=== PATIENT | female | born 1955 | race Caucasian/White ===

== ENCOUNTER 2018-08-07 13:45 | Outpatient (RCR) | payer OTHER, SELFPAY ==
--- NOTE | 2018-07-10 15:00 | PT.OIE ---
Current Diagnoses Sprain of unspecified parts of thorax, initial encounter (07/10/18) Provider Visit Care Team Role Provider Type Syed Tyson MD Attending Provider Non-Staff Primary Care Provider Specialty: Medical Address: [address] [place] [address], [id number] Email: Physical Therapy Initial Evaluation PT-OP-A Visit Information Start: 07/11/18 08:46 Freq: Status: Active Protocol: Document 07/10/18 13:00 AMB (Rec: 07/11/18 08:57 AMB [email or web address]) Out-Patient Physical Therapy Visit Information Visit Information Visit Type Initial Evaluation Visit Start Time 13:00 Visit Stop Time 13:45 Total Visit Minutes 45 Visit Number 1 Evaluation Information Evaluation Date 07/10/18 PT-OP-B Current Condition Start: 07/11/18 08:46 Freq: Status: Active Protocol: Document 07/10/18 13:00 AMB (Rec: 07/12/18 07:29 AMB [email or web address]) Current Condition History of Current Condition Onset Date February 2018 Current Complaints Right back pain that radiates into the groin History of Current Condition The patient was traveling with her in [place] and needed to get out of bed in the middle of the night in an odd bed. She strained her back doing this and the pain has been worsening since. Initially it was just unilateral lumbothoracic back pain but now it is radiating into the groin. Pain is worse with standing and walking. Prior Treatments and Tests Chiropractic, massage therapy, acupuncture, heat helps a bit but not for long Treatment Goals Patient/Caregiver Goals Walk without pain (pt traveling to [place] in August) Prior Functional Status Baseline Function- ADL's Independent Baseline Function- Mobility Independent Current Functional Impairments (Reported) Functional Limitations- Mobility/Gait Limited gait distance, standing tolerance, no falls in last 6 months Personal Factors Other Personal Factors That May Effect History of: B TKA surgery, L Therapy/Recovery foot fracture, L4-5 fusion in 1997 with continued L>R leg burning. PT-OP-C Subjective Start: 07/11/18 08:46 Freq: Status: Active Protocol: Document 07/10/18 13:00 AMB (Rec: 07/12/18 07:29 AMB [email or web address]) Patient Questionnaires Oswestry Low Back Index Oswestry Score 64 Oswestry Impairment 60 to 79% Impaired (Score 60- 79) OP-PT Pain Assessment Pain Assessment Grid Paper Pain Assessment Grid Completed Yes Location Right Back Pain Location Details R back/groin Intensity 7 Scale Used Numeric (1 - 10) PT-OP-F Manual Assessment Start: 07/11/18 08:46 Freq: Status: Active Protocol: Document 07/10/18 13:00 AMB (Rec: 07/12/18 10:19 AMB [email or web address]) Manual Assessments Joint Mobility Assessment Joint Mobility Assessment Pain with passive hip flexion on the right, range limited more by soft tissue than joint restriction, good rotation still. PT-OP-G Mobility & Gait Start: 07/11/18 08:46 Freq: Status: Active Protocol: Document 07/10/18 13:00 AMB (Rec: 07/12/18 10:19 AMB [email or web address]) OP Gait Assessment Comments Gait Comments No trunk rotation, excessive lateral lean with WBOS PT-OP-J Posture/Palpation/Skin Start: 07/11/18 08:46 Freq: Status: Active Protocol: Document 07/10/18 13:00 AMB (Rec: 07/12/18 10:19 AMB [email or web address]) Posture Evaluation Comments Posture Comments Increased lumbar lordosis Palpation Assessment Location One Palpation Location R back/groin Palpation Findings Soft Tissue Tightness Muscle Guarding Tenderness Palpation Details Tenderness and tightness at R QL and hip flexor with light palpation PT-OP-K Range of Motion Start: 07/11/18 08:46 Freq: Status: Active Protocol: Document 07/10/18 13:00 AMB (Rec: 07/12/18 10:19 AMB [email or web address]) Lumbar Spine Range of Motion Lumbar Spine Active Degrees Testing Position Standing Flexion 50 Extension 20 Lateral Flexion Left 17 Lateral Flexion Right 25 ROM Limitations Pain PT-OP-L Special Tests Start: 07/11/18 08:46 Freq: Status: Active Protocol: Document 07/10/18 13:00 AMB (Rec: 07/12/18 10:19 AMB [email or web address]) Special Tests Lumbar Spine Special Tests Straight Leg Raise Test Results negative PT-OP-M Strength Start: 07/11/18 08:46 Freq: Status: Active Protocol: Document 07/10/18 13:00 AMB (Rec: 07/12/18 10:19 AMB [email or web address]) Hip Strength Hip Manual Muscle Testing Right Flexion (L2) 4- Good- Extension (S1) 4 Good Abduction 4 Good Adduction 4 Good Left Flexion (L2) 4+ Good+ Extension (S1) 4+ Good+ Abduction 4 Good Adduction 4 Good Knee Strength Knee Manual Muscle Testing Left Flexion (S2) 5 Normal Extension (L3) 5 Normal Right Flexion (S2) 5 Normal Extension (L3) 5 Normal Ankle/Foot Strength Ankle and Foot Manual Muscle Testing Right Dorsiflexion (L4) 5 Normal Left Dorsiflexion (L4) 5 Normal PT-OP-Q Treatments Start: 07/11/18 08:46 Freq: Status: Active Protocol: Document 07/10/18 13:00 AMB (Rec: 07/12/18 10:04 AMB [email or web address]) Therapeutic Exercises Supine Exercises 1 Supine Exercise Name hip flexor stretch Reps/Minutes 30x2 Sidelying Exercises 1 Sidelying Exercise Name clamshell Reps/Minutes x10 PT-OP-T Assessment and Plan Start: 07/11/18 08:46 Freq: Status: Active Protocol: Document 07/10/18 13:00 AMB (Rec: 07/12/18 10:29 AMB [email or web address]) Physical Therapy Assessment Rehab Potential Rehabilitation Potential Good Evaluation Complexity Number of Personal Factors/Comorbidities 1-2 Number of Body Systems Impaired 4 or More Clinical Presentation at Evaluation Evolving Impairments Impairments Gait Pain Posture ROM Soft Tissue Mobility Strength Goals Two Impairment Pain Short Term Goal (STG) The patient will ndt inspector her kitchen to cook a meal for 20 minutes with pain of 3/10 or less. STG Duration 4 weeks Group Home Goal (LTG) The patient will move from sit to stand wiht 2/10 pain or less. LTG Duration 8 weeks One Impairment Gait Short Term Goal (STG) The patient will ambulate without ataxic gait for 10 minutes. STG Duration 4 weeks Oncology Rep Goal (LTG) The patient will ambulate for 15 minutes with pain of 3/10 or less. LTG Duration 8 weeks Assessment Summary Assessment The patient presents with a likely quadratus lumborum strain that has progressively worsened, so she is compensating and increasing pain in her hip flexor and groin. She presents with significant gait and postural deviations that are exacerbating her pain. Currently her pain appears more muscular than nerve irritation, although she does have baseline nerve symptoms from her back surgery in the s. The patient will benefit from improved flexibility in her spinal musculature as well as improved core and hip strength to avoid flaring her pain more with her poor postural and gait mechanics. Unfortunately chiropractic and massage therapy has not been beneficial so far. Physical Therapy Plan Frequency and Duration Frequency of Treatment 2x/Week Duration of Treatment 8 weeks Plan of Care Start Date 07/10/18 Plan of Care End Date 09/04/18 Therapeutic Interventions Therapeutic Interventions Aquatic Therapy Balance Training Gait Training Home Exercise Program Joint Mobilizations Manual Therapy Neuromuscular Re-education Self-Care/Home Management Soft Tissue Mobilization Therapeutic Activities Therapeutic Exercises Modalities Electric Stimulation Hot Packs Ultrasound Next Visit Focus/Plan Next Note Type Treatment Note Next Visit Plan Work on posture and gait, hip and core stabilization
--- NOTE | 2018-07-10 15:00 | PT.OPPOC ---
Current Diagnoses Sprain of unspecified parts of thorax, initial encounter (07/10/18) Provider Visit Care Team Role Provider Type Syed Tyson MD Attending Provider Non-Staff Primary Care Provider Specialty: Medical Address: [address] [place] [address], [phone] Email: Plan Of Care PT-OP-T Assessment and Plan Start: 07/11/18 08:46 Freq: Status: Active Protocol: Document 07/10/18 13:00 AMB (Rec: 07/12/18 10:29 AMB [email or web address]) Physical Therapy Assessment Rehab Potential Rehabilitation Potential Good Evaluation Complexity Number of Personal Factors/Comorbidities 1-2 Number of Body Systems Impaired 4 or More Clinical Presentation at Evaluation Evolving Impairments Impairments Gait Pain Posture ROM Soft Tissue Mobility Strength Goals Two Impairment Pain Short Term Goal (STG) The patient will action finisher her kitchen to cook a meal for 20 minutes with pain of 3/10 or less. STG Duration 4 weeks Fpc Goal (LTG) The patient will move from sit to stand wiht 2/10 pain or less. LTG Duration 8 weeks One Impairment Gait Short Term Goal (STG) The patient will ambulate without ataxic gait for 10 minutes. STG Duration 4 weeks Business Affairs Manager Goal (LTG) The patient will ambulate for 15 minutes with pain of 3/10 or less. LTG Duration 8 weeks Assessment Summary Assessment The patient presents with a likely quadratus lumborum strain that has progressively worsened, so she is compensating and increasing pain in her hip flexor and groin. She presents with significant gait and postural deviations that are exacerbating her pain. Currently her pain appears more muscular than nerve irritation, although she does have baseline nerve symptoms from her back surgery in the s. The patient will benefit from improved flexibility in her spinal musculature as well as improved core and hip strength to avoid flaring her pain more with her poor postural and gait mechanics. Unfortunately chiropractic and massage therapy has not been beneficial so far. Physical Therapy Plan Frequency and Duration Frequency of Treatment 2x/Week Duration of Treatment 8 weeks Plan of Care Start Date 07/10/18 Plan of Care End Date 09/04/18 Therapeutic Interventions Therapeutic Interventions Aquatic Therapy Balance Training Gait Training Home Exercise Program Joint Mobilizations Manual Therapy Neuromuscular Re-education Self-Care/Home Management Soft Tissue Mobilization Therapeutic Activities Therapeutic Exercises Modalities Electric Stimulation Hot Packs Ultrasound Next Visit Focus/Plan Next Note Type Treatment Note Next Visit Plan Work on posture and gait, hip and core stabilization Plan of Care Dates Plan of Care Start Date 07/10/18 Plan of Care End Date 09/04/18 Please Sign and Return: I have reviewed this Plan of Care and certify that the skilled therapy services above are required to meet the patient?s needs. Physician Signature Date Printed Name and Credentials Clinical Instructor Signature Printed Name and Credentials
--- NOTE | 2018-07-13 16:17 | PT.OTN ---
Current Diagnoses Sprain of unspecified parts of thorax, initial encounter (07/13/18) Physical Therapy Treatment Note PT-OP-A Visit Information Start: 07/11/18 08:46 Freq: Status: Active Protocol: Document 07/13/18 13:00 AMB (Rec: 07/13/18 13:08 AMB [email or web address]) Out-Patient Physical Therapy Visit Information Visit Information Visit Type Treatment Note Visit Start Time 13:00 Visit Stop Time 13:45 Total Visit Minutes 45 Visit Number 1 PT-OP-B Current Condition Start: 07/11/18 08:46 Freq: Status: Active Protocol: Document 07/10/18 13:00 AMB (Rec: 07/12/18 07:29 AMB [email or web address]) Current Condition History of Current Condition Onset Date February 2018 Current Complaints Right back pain that radiates into the groin History of Current Condition The patient was traveling with her in [place] and needed to get out of bed in the middle of the night in an odd bed. She strained her back doing this and the pain has been worsening since. Initially it was just unilateral lumbothoracic back pain but now it is radiating into the groin. Pain is worse with standing and walking. Prior Treatments and Tests Chiropractic, massage therapy, acupuncture, heat helps a bit but not for long Treatment Goals Patient/Caregiver Goals Walk without pain (pt traveling to [place] in August) Prior Functional Status Baseline Function- ADL's Independent Baseline Function- Mobility Independent Current Functional Impairments (Reported) Functional Limitations- Mobility/Gait Limited gait distance, standing tolerance, no falls in last 6 months Personal Factors Other Personal Factors That May Effect History of: B TKA surgery, L Therapy/Recovery foot fracture, L4-5 fusion in 1997 with continued L>R leg burning. PT-OP-C Subjective Start: 07/11/18 08:46 Freq: Status: Active Protocol: Document 07/13/18 13:00 AMB (Rec: 07/13/18 13:08 AMB [email or web address]) OP-PT Subjective Patient Comments Patient Comments Pt is using a cane now which is helping her walk better. PT-OP-F Manual Assessment Start: 07/11/18 08:46 Freq: Status: Active Protocol: Document 07/10/18 13:00 AMB (Rec: 07/12/18 10:19 AMB [email or web address]) Manual Assessments Joint Mobility Assessment Joint Mobility Assessment Pain with passive hip flexion on the right, range limited more by soft tissue than joint restriction, good rotation still. PT-OP-G Mobility & Gait Start: 07/11/18 08:46 Freq: Status: Active Protocol: Document 07/10/18 13:00 AMB (Rec: 07/12/18 10:19 AMB [email or web address]) OP Gait Assessment Comments Gait Comments No trunk rotation, excessive lateral lean with WBOS PT-OP-J Posture/Palpation/Skin Start: 07/11/18 08:46 Freq: Status: Active Protocol: Document 07/10/18 13:00 AMB (Rec: 07/12/18 10:19 AMB [email or web address]) Posture Evaluation Comments Posture Comments Increased lumbar lordosis Palpation Assessment Location One Palpation Location R back/groin Palpation Findings Soft Tissue Tightness Muscle Guarding Tenderness Palpation Details Tenderness and tightness at R QL and hip flexor with light palpation PT-OP-K Range of Motion Start: 07/11/18 08:46 Freq: Status: Active Protocol: Document 07/10/18 13:00 AMB (Rec: 07/12/18 10:19 AMB [email or web address]) Lumbar Spine Range of Motion Lumbar Spine Active Degrees Testing Position Standing Flexion 50 Extension 20 Lateral Flexion Left 17 Lateral Flexion Right 25 ROM Limitations Pain PT-OP-L Special Tests Start: 07/11/18 08:46 Freq: Status: Active Protocol: Document 07/10/18 13:00 AMB (Rec: 07/12/18 10:19 AMB [email or web address]) Special Tests Lumbar Spine Special Tests Straight Leg Raise Test Results negative PT-OP-M Strength Start: 07/11/18 08:46 Freq: Status: Active Protocol: Document 07/10/18 13:00 AMB (Rec: 07/12/18 10:19 AMB [email or web address]) Hip Strength Hip Manual Muscle Testing Right Flexion (L2) 4- Good- Extension (S1) 4 Good Abduction 4 Good Adduction 4 Good Left Flexion (L2) 4+ Good+ Extension (S1) 4+ Good+ Abduction 4 Good Adduction 4 Good Knee Strength Knee Manual Muscle Testing Left Flexion (S2) 5 Normal Extension (L3) 5 Normal Right Flexion (S2) 5 Normal Extension (L3) 5 Normal Ankle/Foot Strength Ankle and Foot Manual Muscle Testing Right Dorsiflexion (L4) 5 Normal Left Dorsiflexion (L4) 5 Normal PT-OP-Q Treatments Start: 07/11/18 08:46 Freq: Status: Active Protocol: Document 07/13/18 13:00 AMB (Rec: 07/13/18 13:46 AMB [email or web address]) Cardio Equipment Recumbent Stepper (Sci-Fit) Duration (Minutes) 5 Resistance 1.5 Therapeutic Exercises Supine Exercises 5 Supine Exercise Name bridge Reps/Minutes 2x10 4 Supine Exercise Name SLR Reps/Minutes 2x5 3 Supine Exercise Name hamstring stretch Reps/Minutes 30x2 2 Supine Exercise Name adductor stretch Reps/Minutes 30x2 1 Supine Exercise Name hip flexor stretch Reps/Minutes 30x2 Sidelying Exercises 2 Sidelying Exercise Name hip abduction Reps/Minutes 2x10 1 Sidelying Exercise Name clamshell Reps/Minutes x10 PT-OP-T Assessment and Plan Start: 07/11/18 08:46 Freq: Status: Active Protocol: Document 07/13/18 13:00 AMB (Rec: 07/13/18 16:15 AMB [email or web address]) Physical Therapy Assessment Assessment Summary Assessment Pt with good improvement of symptoms with initiating cane use. Will need to continue to strengthen to be able to d/c cane in the future. Physical Therapy Plan Next Visit Focus/Plan Next Note Type Treatment Note Next Visit Plan Work on posture and gait, hip and core stabilization
--- NOTE | 2018-07-18 07:36 | PT.OTN ---
Current Diagnoses Sprain of unspecified parts of thorax, initial encounter (07/17/18) Physical Therapy Treatment Note PT-OP-A Visit Information Start: 07/11/18 08:46 Freq: Status: Active Protocol: Document 07/17/18 13:45 AMB (Rec: 07/18/18 07:36 AMB [email or web address]) Out-Patient Physical Therapy Visit Information Visit Information Visit Type Treatment Note Visit Start Time 13:45 Visit Stop Time 14:30 Total Visit Minutes 45 Visit Number 3 Evaluation Information Evaluation Date 07/10/18 PT-OP-B Current Condition Start: 07/11/18 08:46 Freq: Status: Active Protocol: Document 07/10/18 13:00 AMB (Rec: 07/12/18 07:29 AMB [email or web address]) Current Condition History of Current Condition Onset Date February 2018 Current Complaints Right back pain that radiates into the groin History of Current Condition The patient was traveling with her in [place] and needed to get out of bed in the middle of the night in an odd bed. She strained her back doing this and the pain has been worsening since. Initially it was just unilateral lumbothoracic back pain but now it is radiating into the groin. Pain is worse with standing and walking. Prior Treatments and Tests Chiropractic, massage therapy, acupuncture, heat helps a bit but not for long Treatment Goals Patient/Caregiver Goals Walk without pain (pt traveling to [place] in August) Prior Functional Status Baseline Function- ADL's Independent Baseline Function- Mobility Independent Current Functional Impairments (Reported) Functional Limitations- Mobility/Gait Limited gait distance, standing tolerance, no falls in last 6 months Personal Factors Other Personal Factors That May Effect History of: B TKA surgery, L Therapy/Recovery foot fracture, L4-5 fusion in 1997 with continued L>R leg burning. PT-OP-C Subjective Start: 07/11/18 08:46 Freq: Status: Active Protocol: Document 07/17/18 13:45 AMB (Rec: 07/18/18 07:36 AMB [email or web address]) OP-PT Subjective Patient Comments Patient Comments Pt states se was quite sore after PT Monday morning. The sorness is getting better but has continued. Generally more antaglic gait today. PT-OP-F Manual Assessment Start: 07/11/18 08:46 Freq: Status: Active Protocol: Document 07/10/18 13:00 AMB (Rec: 07/12/18 10:19 AMB [email or web address]) Manual Assessments Joint Mobility Assessment Joint Mobility Assessment Pain with passive hip flexion on the right, range limited more by soft tissue than joint restriction, good rotation still. PT-OP-G Mobility & Gait Start: 07/11/18 08:46 Freq: Status: Active Protocol: Document 07/10/18 13:00 AMB (Rec: 07/12/18 10:19 AMB [email or web address]) OP Gait Assessment Comments Gait Comments No trunk rotation, excessive lateral lean with WBOS PT-OP-J Posture/Palpation/Skin Start: 07/11/18 08:46 Freq: Status: Active Protocol: Document 07/10/18 13:00 AMB (Rec: 07/12/18 10:19 AMB [email or web address]) Posture Evaluation Comments Posture Comments Increased lumbar lordosis Palpation Assessment Location One Palpation Location R back/groin Palpation Findings Soft Tissue Tightness Muscle Guarding Tenderness Palpation Details Tenderness and tightness at R QL and hip flexor with light palpation PT-OP-K Range of Motion Start: 07/11/18 08:46 Freq: Status: Active Protocol: Document 07/10/18 13:00 AMB (Rec: 07/12/18 10:19 AMB [email or web address]) Lumbar Spine Range of Motion Lumbar Spine Active Degrees Testing Position Standing Flexion 50 Extension 20 Lateral Flexion Left 17 Lateral Flexion Right 25 ROM Limitations Pain PT-OP-L Special Tests Start: 07/11/18 08:46 Freq: Status: Active Protocol: Document 07/10/18 13:00 AMB (Rec: 07/12/18 10:19 AMB [email or web address]) Special Tests Lumbar Spine Special Tests Straight Leg Raise Test Results negative PT-OP-M Strength Start: 07/11/18 08:46 Freq: Status: Active Protocol: Document 07/10/18 13:00 AMB (Rec: 07/12/18 10:19 AMB [email or web address]) Hip Strength Hip Manual Muscle Testing Right Flexion (L2) 4- Good- Extension (S1) 4 Good Abduction 4 Good Adduction 4 Good Left Flexion (L2) 4+ Good+ Extension (S1) 4+ Good+ Abduction 4 Good Adduction 4 Good Knee Strength Knee Manual Muscle Testing Left Flexion (S2) 5 Normal Extension (L3) 5 Normal Right Flexion (S2) 5 Normal Extension (L3) 5 Normal Ankle/Foot Strength Ankle and Foot Manual Muscle Testing Right Dorsiflexion (L4) 5 Normal Left Dorsiflexion (L4) 5 Normal PT-OP-Q Treatments Start: 07/11/18 08:46 Freq: Status: Active Protocol: Document 07/17/18 13:45 AMB (Rec: 07/18/18 07:36 AMB [email or web address]) Cardio Equipment Recumbent Stepper (Sci-Fit) Duration (Minutes) 5 Resistance 1.5 Therapeutic Exercises Supine Exercises 2 Supine Exercise Name adductor stretch Reps/Minutes 30x2 1 Supine Exercise Name hip flexor stretch Reps/Minutes 30x2 Sidelying Exercises 1 Sidelying Exercise Name clamshell Reps/Minutes x10 Manual Therapy Treatment Soft Tissue Mobilization 1 Body Location R QL Mobilization Type Myofascial Release Trigger Point Release Intensity/Depth Moderate Body Position Sidelying Manual Traction Lumbar Details Long axis distraction Body Position Supine PT-OP-T Assessment and Plan Start: 07/11/18 08:46 Freq: Status: Active Protocol: Document 07/17/18 13:45 AMB (Rec: 07/18/18 07:36 AMB [email or web address]) Physical Therapy Assessment Assessment Summary Assessment Pt noticed improved hip sx after manualtherapy, but continued to have back pain. Pt instructed in theracane usage. Physical Therapy Plan Next Visit Focus/Plan Next Note Type Treatment Note Next Visit Plan Work on posture and gait, hip and core stabilization to patient tolerance.
--- NOTE | 2018-07-20 13:03 | PT.OTN ---
Current Diagnoses Sprain of unspecified parts of thorax, initial encounter (07/20/18) Physical Therapy Treatment Note PT-OP-A Visit Information Start: 07/11/18 08:46 Freq: Status: Active Protocol: Document 07/20/18 12:57 SA (Rec: 07/20/18 13:03 SA [email or web address]) Out-Patient Physical Therapy Visit Information Visit Information Visit Type Treatment Note Visit Start Time 12:13 Visit Stop Time 12:57 Total Visit Minutes 44 Visit Number 4 Number of SCRAP BALER Visits 1 PT-OP-B Current Condition Start: 07/11/18 08:46 Freq: Status: Active Protocol: Document 07/10/18 13:00 AMB (Rec: 07/12/18 07:29 AMB [email or web address]) Current Condition History of Current Condition Onset Date February 2018 Current Complaints Right back pain that radiates into the groin History of Current Condition The patient was traveling with her in [place] and needed to get out of bed in the middle of the night in an odd bed. She strained her back doing this and the pain has been worsening since. Initially it was just unilateral lumbothoracic back pain but now it is radiating into the groin. Pain is worse with standing and walking. Prior Treatments and Tests Chiropractic, massage therapy, acupuncture, heat helps a bit but not for long Treatment Goals Patient/Caregiver Goals Walk without pain (pt traveling to [place] in August) Prior Functional Status Baseline Function- ADL's Independent Baseline Function- Mobility Independent Current Functional Impairments (Reported) Functional Limitations- Mobility/Gait Limited gait distance, standing tolerance, no falls in last 6 months Personal Factors Other Personal Factors That May Effect History of: B TKA surgery, L Therapy/Recovery foot fracture, L4-5 fusion in 1997 with continued L>R leg burning. PT-OP-C Subjective Start: 07/11/18 08:46 Freq: Status: Active Protocol: Document 07/20/18 12:57 SA (Rec: 07/20/18 13:03 SA [email or web address]) OP-PT Subjective Patient Comments Patient Comments Pt states she is slowly feeling less groin and R lower back pain. Doing stretches 2x daily at home. PT-OP-F Manual Assessment Start: 07/11/18 08:46 Freq: Status: Active Protocol: Document 07/10/18 13:00 AMB (Rec: 07/12/18 10:19 AMB [email or web address]) Manual Assessments Joint Mobility Assessment Joint Mobility Assessment Pain with passive hip flexion on the right, range limited more by soft tissue than joint restriction, good rotation still. PT-OP-G Mobility & Gait Start: 07/11/18 08:46 Freq: Status: Active Protocol: Document 07/10/18 13:00 AMB (Rec: 07/12/18 10:19 AMB [email or web address]) OP Gait Assessment Comments Gait Comments No trunk rotation, excessive lateral lean with WBOS PT-OP-J Posture/Palpation/Skin Start: 07/11/18 08:46 Freq: Status: Active Protocol: Document 07/10/18 13:00 AMB (Rec: 07/12/18 10:19 AMB [email or web address]) Posture Evaluation Comments Posture Comments Increased lumbar lordosis Palpation Assessment Location One Palpation Location R back/groin Palpation Findings Soft Tissue Tightness Muscle Guarding Tenderness Palpation Details Tenderness and tightness at R QL and hip flexor with light palpation PT-OP-K Range of Motion Start: 07/11/18 08:46 Freq: Status: Active Protocol: Document 07/10/18 13:00 AMB (Rec: 07/12/18 10:19 AMB [email or web address]) Lumbar Spine Range of Motion Lumbar Spine Active Degrees Testing Position Standing Flexion 50 Extension 20 Lateral Flexion Left 17 Lateral Flexion Right 25 ROM Limitations Pain PT-OP-L Special Tests Start: 07/11/18 08:46 Freq: Status: Active Protocol: Document 07/10/18 13:00 AMB (Rec: 07/12/18 10:19 AMB [email or web address]) Special Tests Lumbar Spine Special Tests Straight Leg Raise Test Results negative PT-OP-M Strength Start: 07/11/18 08:46 Freq: Status: Active Protocol: Document 07/10/18 13:00 AMB (Rec: 07/12/18 10:19 AMB [email or web address]) Hip Strength Hip Manual Muscle Testing Right Flexion (L2) 4- Good- Extension (S1) 4 Good Abduction 4 Good Adduction 4 Good Left Flexion (L2) 4+ Good+ Extension (S1) 4+ Good+ Abduction 4 Good Adduction 4 Good Knee Strength Knee Manual Muscle Testing Left Flexion (S2) 5 Normal Extension (L3) 5 Normal Right Flexion (S2) 5 Normal Extension (L3) 5 Normal Ankle/Foot Strength Ankle and Foot Manual Muscle Testing Right Dorsiflexion (L4) 5 Normal Left Dorsiflexion (L4) 5 Normal PT-OP-Q Treatments Start: 07/11/18 08:46 Freq: Status: Active Protocol: Document 07/20/18 12:57 SA (Rec: 07/20/18 13:03 SA [email or web address]) Cardio Equipment Recumbent Stepper (Sci-Fit) Duration (Minutes) 6 Resistance 1.6 Therapeutic Exercises Supine Exercises 4 Supine Exercise Name SLR Reps/Minutes 2x5 3 Supine Exercise Name hamstring stretch Reps/Minutes 30x2 2 Supine Exercise Name adductor stretch Reps/Minutes 30x2 1 Supine Exercise Name hip flexor stretch Reps/Minutes 30x2 Sidelying Exercises 1 Sidelying Exercise Name clamshell Reps/Minutes 15 PT-OP-T Assessment and Plan Start: 07/11/18 08:46 Freq: Status: Active Protocol: Document 07/20/18 12:57 SA (Rec: 07/20/18 13:03 [email or web address]) Physical Therapy Assessment Assessment Summary Assessment Pt demonstrates good ability to perform stretches/exercises . Decreasing groin pain but continued antalgic gait. Physical Therapy Plan Next Visit Focus/Plan Next Note Type Treatment Note Next Visit Plan Continue to work on posture, gait and core stabilization. Pt responded well to manual therapy last visit.
--- NOTE | 2018-07-25 15:45 | PT.OTN ---
Current Diagnoses Sprain of unspecified parts of thorax, initial encounter (07/25/18) Physical Therapy Treatment Note PT-OP-A Visit Information Start: 07/11/18 08:46 Freq: Status: Active Protocol: Document 07/25/18 14:30 AMB (Rec: 07/25/18 14:38 AMB [id number]) Out-Patient Physical Therapy Visit Information Visit Information Visit Type Treatment Note Visit Start Time 14:30 Visit Stop Time 15:15 Total Visit Minutes 44 Visit Number 5 Number of PHYSICS TECHNICAL OFFICER Visits 0 PT-OP-B Current Condition Start: 07/11/18 08:46 Freq: Status: Active Protocol: Document 07/10/18 13:00 AMB (Rec: 07/12/18 07:29 AMB [email or web address]) Current Condition History of Current Condition Onset Date February 2018 Current Complaints Right back pain that radiates into the groin History of Current Condition The patient was traveling with her in [place] and needed to get out of bed in the middle of the night in an odd bed. She strained her back doing this and the pain has been worsening since. Initially it was just unilateral lumbothoracic back pain but now it is radiating into the groin. Pain is worse with standing and walking. Prior Treatments and Tests Chiropractic, massage therapy, acupuncture, heat helps a bit but not for long Treatment Goals Patient/Caregiver Goals Walk without pain (pt traveling to [place] in August) Prior Functional Status Baseline Function- ADL's Independent Baseline Function- Mobility Independent Current Functional Impairments (Reported) Functional Limitations- Mobility/Gait Limited gait distance, standing tolerance, no falls in last 6 months Personal Factors Other Personal Factors That May Effect History of: B TKA surgery, L Therapy/Recovery foot fracture, L4-5 fusion in 1997 with continued L>R leg burning. PT-OP-C Subjective Start: 07/11/18 08:46 Freq: Status: Active Protocol: Document 07/25/18 14:30 AMB (Rec: 07/25/18 14:38 AMB [id number]) OP-PT Subjective Patient Comments Patient Comments Pt is feeling less groin pain and R low back pain, but her R lateral hip pain is worse. PT-OP-F Manual Assessment Start: 07/11/18 08:46 Freq: Status: Active Protocol: Document 07/10/18 13:00 AMB (Rec: 12/13/18 10:19 AMB [email or web address]) Manual Assessments Joint Mobility Assessment Joint Mobility Assessment Pain with passive hip flexion on the right, range limited more by soft tissue than joint restriction, good rotation still. PT-OP-G Mobility & Gait Start: 07/11/18 08:46 Freq: Status: Active Protocol: Document 07/10/18 13:00 AMB (Rec: 07/12/18 10:19 AMB [email or web address]) OP Gait Assessment Comments Gait Comments No trunk rotation, excessive lateral lean with WBOS PT-OP-J Posture/Palpation/Skin Start: 07/11/18 08:46 Freq: Status: Active Protocol: Document 07/10/18 13:00 AMB (Rec: 07/12/18 10:19 AMB [email or web address]) Posture Evaluation Comments Posture Comments Increased lumbar lordosis Palpation Assessment Location One Palpation Location R back/groin Palpation Findings Soft Tissue Tightness Muscle Guarding Tenderness Palpation Details Tenderness and tightness at R QL and hip flexor with light palpation PT-OP-K Range of Motion Start: 07/11/18 08:46 Freq: Status: Active Protocol: Document 07/10/18 13:00 AMB (Rec: 07/12/18 10:19 AMB [email or web address]) Lumbar Spine Range of Motion Lumbar Spine Active Degrees Testing Position Standing Flexion 50 Extension 20 Lateral Flexion Left 17 Lateral Flexion Right 25 ROM Limitations Pain PT-OP-L Special Tests Start: 07/11/18 08:46 Freq: Status: Active Protocol: Document 07/10/18 13:00 AMB (Rec: 07/12/18 10:19 AMB [email or web address]) Special Tests Lumbar Spine Special Tests Straight Leg Raise Test Results negative PT-OP-M Strength Start: 07/11/18 08:46 Freq: Status: Active Protocol: Document 07/10/18 13:00 AMB (Rec: 07/12/18 10:19 AMB [email or web address]) Hip Strength Hip Manual Muscle Testing Right Flexion (L2) 4- Good- Extension (S1) 4 Good Abduction 4 Good Adduction 4 Good Left Flexion (L2) 4+ Good+ Extension (S1) 4+ Good+ Abduction 4 Good Adduction 4 Good Knee Strength Knee Manual Muscle Testing Left Flexion (S2) 5 Normal Extension (L3) 5 Normal Right Flexion (S2) 5 Normal Extension (L3) 5 Normal Ankle/Foot Strength Ankle and Foot Manual Muscle Testing Right Dorsiflexion (L4) 5 Normal Left Dorsiflexion (L4) 5 Normal PT-OP-Q Treatments Start: 07/11/18 08:46 Freq: Status: Active Protocol: Document 07/25/18 14:30 AMB (Rec: 07/25/18 14:39 AMB [id number]) Cardio Equipment Recumbent Stepper (Sci-Fit) Duration (Minutes) 6 Resistance 1.0 Therapeutic Exercises Supine Exercises 4 Supine Exercise Name SLR Reps/Minutes 2x5 3 Supine Exercise Name hamstring stretch Reps/Minutes 30x2 2 Supine Exercise Name adductor stretch Reps/Minutes 30x2 1 Supine Exercise Name hip flexor stretch Reps/Minutes 30x2 Sidelying Exercises 1 Sidelying Exercise Name clamshell Reps/Minutes 15 Manual Therapy Treatment Soft Tissue Mobilization 1 Body Location R QL/ IT band Mobilization Type Myofascial Release Trigger Point Release Intensity/Depth Moderate Body Position Sidelying PT-OP-T Assessment and Plan Start: 07/11/18 08:46 Freq: Status: Active Protocol: Document 07/25/18 14:30 AMB (Rec: 07/25/18 15:45 AMB [email or web address]) Physical Therapy Assessment Assessment Summary Assessment d/george hip abduction from HEP, can do clamshell, see if that helps decrease lateral hip pain. Physical Therapy Plan Next Visit Focus/Plan Next Note Type Treatment Note Next Visit Plan Recheck groin vs hip vs back pain
--- NOTE | 2018-07-27 16:08 | PT.OTN ---
Current Diagnoses Sprain of unspecified parts of thorax, initial encounter (07/27/18) Physical Therapy Treatment Note PT-OP-A Visit Information Start: 07/11/18 08:46 Freq: Status: Active Protocol: Document 07/27/18 14:30 AMB (Rec: 07/27/18 14:43 AMB [id number]) Out-Patient Physical Therapy Visit Information Visit Information Visit Type Treatment Note Visit Start Time 14:30 Visit Stop Time 15:15 Total Visit Minutes 45 Visit Number 6 Number of GRIT REMOVAL OPERATOR Visits 0 PT-OP-B Current Condition Start: 07/11/18 08:46 Freq: Status: Active Protocol: Document 07/10/18 13:00 AMB (Rec: 07/12/18 07:29 AMB [email or web address]) Current Condition History of Current Condition Onset Date February 2018 Current Complaints Right back pain that radiates into the groin History of Current Condition The patient was traveling with her in [place] and needed to get out of bed in the middle of the night in an odd bed. She strained her back doing this and the pain has been worsening since. Initially it was just unilateral lumbothoracic back pain but now it is radiating into the groin. Pain is worse with standing and walking. Prior Treatments and Tests Chiropractic, massage therapy, acupuncture, heat helps a bit but not for long Treatment Goals Patient/Caregiver Goals Walk without pain (pt traveling to [place] in August) Prior Functional Status Baseline Function- ADL's Independent Baseline Function- Mobility Independent Current Functional Impairments (Reported) Functional Limitations- Mobility/Gait Limited gait distance, standing tolerance, no falls in last 6 months Personal Factors Other Personal Factors That May Effect History of: B TKA surgery, L Therapy/Recovery foot fracture, L4-5 fusion in 1997 with continued L>R leg burning. PT-OP-C Subjective Start: 07/11/18 08:46 Freq: Status: Active Protocol: Document 07/27/18 14:30 AMB (Rec: 07/27/18 14:43 AMB [id number]) OP-PT Subjective Patient Comments Patient Comments Pt is feeling better today. PT-OP-F Manual Assessment Start: 07/11/18 08:46 Freq: Status: Active Protocol: Document 07/10/18 13:00 AMB (Rec: 07/12/18 10:19 AMB [email or web address]) Manual Assessments Joint Mobility Assessment Joint Mobility Assessment Pain with passive hip flexion on the right, range limited more by soft tissue than joint restriction, good rotation still. PT-OP-G Mobility & Gait Start: 07/11/18 08:46 Freq: Status: Active Protocol: Document 07/10/18 13:00 AMB (Rec: 07/12/18 10:19 AMB [email or web address]) OP Gait Assessment Comments Gait Comments No trunk rotation, excessive lateral lean with WBOS PT-OP-J Posture/Palpation/Skin Start: 07/11/18 08:46 Freq: Status: Active Protocol: Document 07/10/18 13:00 AMB (Rec: 07/12/18 10:19 AMB [email or web address]) Posture Evaluation Comments Posture Comments Increased lumbar lordosis Palpation Assessment Location One Palpation Location R back/groin Palpation Findings Soft Tissue Tightness Muscle Guarding Tenderness Palpation Details Tenderness and tightness at R QL and hip flexor with light palpation PT-OP-K Range of Motion Start: 07/11/18 08:46 Freq: Status: Active Protocol: Document 07/10/18 13:00 AMB (Rec: 07/12/18 10:19 AMB [email or web address]) Lumbar Spine Range of Motion Lumbar Spine Active Degrees Testing Position Standing Flexion 50 Extension 20 Lateral Flexion Left 17 Lateral Flexion Right 25 ROM Limitations Pain PT-OP-L Special Tests Start: 07/11/18 08:46 Freq: Status: Active Protocol: Document 07/10/18 13:00 AMB (Rec: 07/12/18 10:19 AMB [email or web address]) Special Tests Lumbar Spine Special Tests Straight Leg Raise Test Results negative PT-OP-M Strength Start: 07/11/18 08:46 Freq: Status: Active Protocol: Document 07/10/18 13:00 AMB (Rec: 07/12/18 10:19 AMB [email or web address]) Hip Strength Hip Manual Muscle Testing Right Flexion (L2) 4- Good- Extension (S1) 4 Good Abduction 4 Good Adduction 4 Good Left Flexion (L2) 4+ Good+ Extension (S1) 4+ Good+ Abduction 4 Good Adduction 4 Good Knee Strength Knee Manual Muscle Testing Left Flexion (S2) 5 Normal Extension (L3) 5 Normal Right Flexion (S2) 5 Normal Extension (L3) 5 Normal Ankle/Foot Strength Ankle and Foot Manual Muscle Testing Right Dorsiflexion (L4) 5 Normal Left Dorsiflexion (L4) 5 Normal PT-OP-Q Treatments Start: 07/11/18 08:46 Freq: Status: Active Protocol: Document 07/27/18 14:30 AMB (Rec: 07/27/18 16:08 AMB [email or web address]) Cardio Equipment Recumbent Stepper (Sci-Fit) Duration (Minutes) 6 Resistance 4 Manual Therapy Treatment Soft Tissue Mobilization 1 Body Location R QL/ IT band Mobilization Type Myofascial Release Trigger Point Release Intensity/Depth Moderate Body Position Sidelying PT-OP-T Assessment and Plan Start: 07/11/18 08:46 Freq: Status: Active Protocol: Document 07/27/18 14:30 AMB (Rec: 07/27/18 16:08 AMB [email or web address]) Physical Therapy Assessment Assessment Summary Assessment Pt tolerated manual well, but is still using the cane. Physical Therapy Plan Next Visit Focus/Plan Next Note Type Treatment Note Next Visit Plan Possible discharge if pt still doing well.
--- NOTE | 2018-08-02 08:03 | PT.OTN ---
Current Diagnoses Sprain of unspecified parts of thorax, initial encounter (07/30/18) Physical Therapy Treatment Note PT-OP-A Visit Information Start: 07/11/18 08:46 Freq: Status: Active Protocol: Document 07/30/18 14:30 AMB (Rec: 07/30/18 14:39 AMB [id number]) Out-Patient Physical Therapy Visit Information Visit Information Visit Type Treatment Note Visit Start Time 14:30 Visit Stop Time 15:15 Total Visit Minutes 45 Visit Number 7 Number of FIRMWARE MANAGER Visits 0 PT-OP-B Current Condition Start: 07/11/18 08:46 Freq: Status: Active Protocol: Document 07/10/18 13:00 AMB (Rec: 07/12/18 07:29 AMB [email or web address]) Current Condition History of Current Condition Onset Date February 2018 Current Complaints Right back pain that radiates into the groin History of Current Condition The patient was traveling with her in [place] and needed to get out of bed in the middle of the night in an odd bed. She strained her back doing this and the pain has been worsening since. Initially it was just unilateral lumbothoracic back pain but now it is radiating into the groin. Pain is worse with standing and walking. Prior Treatments and Tests Chiropractic, massage therapy, acupuncture, heat helps a bit but not for long Treatment Goals Patient/Caregiver Goals Walk without pain (pt traveling to [place] in August) Prior Functional Status Baseline Function- ADL's Independent Baseline Function- Mobility Independent Current Functional Impairments (Reported) Functional Limitations- Mobility/Gait Limited gait distance, standing tolerance, no falls in last 6 months Personal Factors Other Personal Factors That May Effect History of: B TKA surgery, L Therapy/Recovery foot fracture, L4-5 fusion in 1997 with continued L>R leg burning. PT-OP-C Subjective Start: 07/11/18 08:46 Freq: Status: Active Protocol: Document 07/30/18 14:30 AMB (Rec: 07/30/18 14:39 AMB [id number]) OP-PT Subjective Patient Comments Patient Comments Pt reports 1/10 pain. PT-OP-F Manual Assessment Start: 07/11/18 08:46 Freq: Status: Active Protocol: Document 07/10/18 13:00 AMB (Rec: 07/12/18 10:19 AMB [email or web address]) Manual Assessments Joint Mobility Assessment Joint Mobility Assessment Pain with passive hip flexion on the right, range limited more by soft tissue than joint restriction, good rotation still. PT-OP-G Mobility & Gait Start: 07/11/18 08:46 Freq: Status: Active Protocol: Document 07/10/18 13:00 AMB (Rec: 07/12/18 10:19 AMB [email or web address]) OP Gait Assessment Comments Gait Comments No trunk rotation, excessive lateral lean with WBOS PT-OP-J Posture/Palpation/Skin Start: 07/11/18 08:46 Freq: Status: Active Protocol: Document 07/10/18 13:00 AMB (Rec: 07/12/18 10:19 AMB [email or web address]) Posture Evaluation Comments Posture Comments Increased lumbar lordosis Palpation Assessment Location One Palpation Location R back/groin Palpation Findings Soft Tissue Tightness Muscle Guarding Tenderness Palpation Details Tenderness and tightness at R QL and hip flexor with light palpation PT-OP-K Range of Motion Start: 07/11/18 08:46 Freq: Status: Active Protocol: Document 07/10/18 13:00 AMB (Rec: 07/12/18 10:19 AMB [email or web address]) Lumbar Spine Range of Motion Lumbar Spine Active Degrees Testing Position Standing Flexion 50 Extension 20 Lateral Flexion Left 17 Lateral Flexion Right 25 ROM Limitations Pain PT-OP-L Special Tests Start: 07/11/18 08:46 Freq: Status: Active Protocol: Document 07/10/18 13:00 AMB (Rec: 07/12/18 10:19 AMB [email or web address]) Special Tests Lumbar Spine Special Tests Straight Leg Raise Test Results negative PT-OP-M Strength Start: 07/11/18 08:46 Freq: Status: Active Protocol: Document 07/10/18 13:00 AMB (Rec: 07/12/18 10:19 AMB [email or web address]) Hip Strength Hip Manual Muscle Testing Right Flexion (L2) 4- Good- Extension (S1) 4 Good Abduction 4 Good Adduction 4 Good Left Flexion (L2) 4+ Good+ Extension (S1) 4+ Good+ Abduction 4 Good Adduction 4 Good Knee Strength Knee Manual Muscle Testing Left Flexion (S2) 5 Normal Extension (L3) 5 Normal Right Flexion (S2) 5 Normal Extension (L3) 5 Normal Ankle/Foot Strength Ankle and Foot Manual Muscle Testing Right Dorsiflexion (L4) 5 Normal Left Dorsiflexion (L4) 5 Normal PT-OP-Q Treatments Start: 07/11/18 08:46 Freq: Status: Active Protocol: Document 07/30/18 14:30 AMB (Rec: 08/02/18 08:03 AMB [email or web address]) Cardio Equipment Recumbent Stepper (Sci-Fit) Duration (Minutes) 6 Resistance 4 Manual Therapy Treatment Soft Tissue Mobilization 1 Body Location R QL/ IT band Mobilization Type Myofascial Release Trigger Point Release Intensity/Depth Moderate Body Position Sidelying Manual Traction Lumbar Details Long axis distraction Body Position Supine PT-OP-T Assessment and Plan Start: 07/11/18 08:46 Freq: Status: Active Protocol: Document 07/30/18 14:30 AMB (Rec: 08/02/18 08:03 AMB [email or web address]) Physical Therapy Assessment Assessment Summary Assessment Pt no longer using the cane. Rates pain as 1/10. Feels she is finally improving. Reduced frequency to 1x/week due to pt doing well. Physical Therapy Plan Next Visit Focus/Plan Next Note Type Treatment Note Next Visit Plan Possible discharge if pt still doing well.
--- NOTE | 2018-08-07 15:45 | PT.OTN ---
Current Diagnoses Sprain of unspecified parts of thorax, initial encounter (08/07/18) Physical Therapy Treatment Note PT-OP-A Visit Information Start: 07/11/18 08:46 Freq: Status: Active Protocol: Document 08/07/18 13:45 AMB (Rec: 08/07/18 13:51 AMB [id number]) Out-Patient Physical Therapy Visit Information Visit Information Visit Type Treatment Note Visit Start Time 13:45 Visit Stop Time 14:30 Total Visit Minutes 45 Visit Number 8 PT-OP-B Current Condition Start: 07/11/18 08:46 Freq: Status: Active Protocol: Document 07/10/18 13:00 AMB (Rec: 07/12/18 07:29 AMB [email or web address]) Current Condition History of Current Condition Onset Date February 2018 Current Complaints Right back pain that radiates into the groin History of Current Condition The patient was traveling with her in [place] and needed to get out of bed in the middle of the night in an odd bed. She strained her back doing this and the pain has been worsening since. Initially it was just unilateral lumbothoracic back pain but now it is radiating into the groin. Pain is worse with standing and walking. Prior Treatments and Tests Chiropractic, massage therapy, acupuncture, heat helps a bit but not for long Treatment Goals Patient/Caregiver Goals Walk without pain (pt traveling to [place] in August) Prior Functional Status Baseline Function- ADL's Independent Baseline Function- Mobility Independent Current Functional Impairments (Reported) Functional Limitations- Mobility/Gait Limited gait distance, standing tolerance, no falls in last 6 months Personal Factors Other Personal Factors That May Effect History of: B TKA surgery, L Therapy/Recovery foot fracture, L4-5 fusion in 1997 with continued L>R leg burning. PT-OP-C Subjective Start: 07/11/18 08:46 Freq: Status: Active Protocol: Document 08/07/18 13:45 AMB (Rec: 08/07/18 13:51 AMB [id number]) OP-PT Subjective Patient Comments Patient Comments No groin pain but just a little bit of side pain. PT-OP-F Manual Assessment Start: 07/11/18 08:46 Freq: Status: Active Protocol: Document 07/10/18 13:00 AMB (Rec: 07/12/18 10:19 AMB [email or web address]) Manual Assessments Joint Mobility Assessment Joint Mobility Assessment Pain with passive hip flexion on the right, range limited more by soft tissue than joint restriction, good rotation still. PT-OP-G Mobility & Gait Start: 07/11/18 08:46 Freq: Status: Active Protocol: Document 07/10/18 13:00 AMB (Rec: 07/12/18 10:19 AMB [email or web address]) OP Gait Assessment Comments Gait Comments No trunk rotation, excessive lateral lean with WBOS PT-OP-J Posture/Palpation/Skin Start: 07/11/18 08:46 Freq: Status: Active Protocol: Document 07/10/18 13:00 AMB (Rec: 07/12/18 10:19 AMB [email or web address]) Posture Evaluation Comments Posture Comments Increased lumbar lordosis Palpation Assessment Location One Palpation Location R back/groin Palpation Findings Soft Tissue Tightness Muscle Guarding Tenderness Palpation Details Tenderness and tightness at R QL and hip flexor with light palpation PT-OP-K Range of Motion Start: 07/11/18 08:46 Freq: Status: Active Protocol: Document 07/10/18 13:00 AMB (Rec: 07/12/18 10:19 AMB [email or web address]) Lumbar Spine Range of Motion Lumbar Spine Active Degrees Testing Position Standing Flexion 50 Extension 20 Lateral Flexion Left 17 Lateral Flexion Right 25 ROM Limitations Pain PT-OP-L Special Tests Start: 07/11/18 08:46 Freq: Status: Active Protocol: Document 07/10/18 13:00 AMB (Rec: 07/12/18 10:19 AMB [email or web address]) Special Tests Lumbar Spine Special Tests Straight Leg Raise Test Results negative PT-OP-M Strength Start: 07/11/18 08:46 Freq: Status: Active Protocol: Document 08/07/18 13:45 AMB (Rec: 08/07/18 15:45 AMB [email or web address]) Hip Strength Hip Manual Muscle Testing Right Flexion (L2) 4 Good Extension (S1) 4 Good Abduction 4 Good Adduction 4 Good Left Flexion (L2) 4+ Good+ Extension (S1) 4+ Good+ Abduction 4 Good Adduction 4 Good PT-OP-Q Treatments Start: 07/11/18 08:46 Freq: Status: Active Protocol: Document 08/07/18 13:45 AMB (Rec: 08/07/18 13:56 AMB [id number]) Cardio Equipment Recumbent Stepper (Sci-Fit) Duration (Minutes) 7 Resistance 4 Therapeutic Exercises Sidelying Exercises 1 Sidelying Exercise Name emeka Reps/Minutes 15 Manual Therapy Treatment Soft Tissue Mobilization 1 Body Location R QL/ IT band Mobilization Type Myofascial Release Trigger Point Release Intensity/Depth Moderate Body Position Sidelying PT-OP-T Assessment and Plan Start: 07/11/18 08:46 Freq: Status: Active Protocol: Document 08/07/18 13:45 AMB (Rec: 08/07/18 15:43 AMB [email or web address]) Physical Therapy Assessment Goals Two Impairment Pain Short Term Goal (STG) The patient will fish bin tender her kitchen to cook a meal for 20 minutes with pain of 3/10 or less. STG Duration MET Head Charrer Goal (LTG) The patient will move from sit to stand wiht 2/10 pain or less. LTG Duration MET One Impairment Gait Short Term Goal (STG) The patient will ambulate without ataxic gait for 10 minutes. STG Duration MET Half-Way Goal (LTG) The patient will ambulate for 15 minutes with pain of 3/10 or less. LTG Duration MET Assessment Summary Assessment Pt is doing well. She is not using the cane and she no longer has groin pain. She notices very mild right flank pain that she states has been present for a very long time when scooting in bed. She will continue with her HEP, but is ready to be discharged at this time as she has met all of her goals. Physical Therapy Plan Discharge Physical Therapy Discharge Reasons Goals Met
== END 2018-09-19 10:12 ==
LOC: PHYS 13:45
PROVIDERS: PCP Family Medicine; Visit Provider Family Medicine
DX: S23.9XXA Sprain of unspecified parts of thorax, initial encounter (principal)
CPT/HCPCS: 97110; 97140; 97162